=== PATIENT | female | born 1985 ===

== ENCOUNTER 2021-02-18 09:48 | Emergency (ER) | payer OTHER ==
[~2021-02-18] VITALS: Ht 160 cm; Wt 56.4 kg
[2021-02-18 09:58] VITALS: BP 94/68
--- NOTE | 2021-02-18 11:06 | NUR ---
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
--- NOTE | 2021-02-18 11:21 | NUR ---
CORRECTION: DC'D PER BILLY HURLEY PRIOR TO AGILE PROJECT MANAGER.
== END 2021-02-18 10:55 | disposition home or self-care (01) ==
LOC: ED 10:24
DX: K62.5 Hemorrhage of anus and rectum (principal)
CPT/HCPCS: 99282